=== PATIENT | female | born 1985 | race Caucasian/White ===

== ENCOUNTER 2017-04-16 21:14 | Inpatient (IN) | payer OTHER ==
[2017-04-16] MEDS ORDERED: morphine CARPU-JECT 2 MG/1 ML DISP.SYRIN IVPUSH ONE (22:09)
--- NOTE | 2017-04-16 22:17 | PDOC ---
History of Present Illness - General Chief Complaint: Pain Stated Complaint: LOWER LEFT BACK/ ABD PAIN Time Seen by Provider: 04/16/17 21:53 History Source: Patient Exam Limitations: No Limitations - History of Present Illness Initial Comments: 04/16/17 22:11 Patient is a 32-year-old female with no past medical history here with complaints of abdominal pain 2 days. Patient states that she had bilateral back pain which started 3 days ago which then radiated to the front and now she mostly has pain periumbilically. Pain is 7/10, is worse with movement, sharp, stabbing. States she also has some urinary frequency and urgency however has no dysuria. Denies nausea, vomiting, fever, chills, diarrhea. LMP 03/23/17. PMHX: as above PSOCHX: neg etoh, drug, cig all: NKDA GENERAL/CONSTITUTIONAL: [No fever or chills. No weakness. No weight change.] HEAD, EYES, EARS, NOSE AND THROAT: [No change in vision. No ear pain or discharge. No sore throat.] CARDIOVASCULAR: [No chest pain or shortness of breath.] RESPIRATORY: [No cough, wheezing, or hemoptysis.] GASTROINTESTINAL: [No nausea, vomiting, diarrhea or constipation. No rectal bleeding.] GENITOURINARY: [No dysuria, (+) frequency, or change in urination.] MUSCULOSKELETAL: [No joint or muscle swelling or pain. No neck or back pain.] SKIN AND BREASTS: [No rash or easy bruising.] NEUROLOGIC: [No headache, vertigo, loss of consciousness, or loss of sensation.] PSYCHIATRIC: [No depression or anxiety.] ENDOCRINE: [No increased thirst. No abnormal weight change.] HEMATOLOGIC/LYMPHATIC: [No anemia, easy bleeding, or history of blood clots.] ALLERGIC/IMMUNOLOGIC: [No hives or skin allergy. No latex allergy.] GENERAL: [The patient is awake, alert, and fully oriented, in mild distress.] HEAD: [Normal with no signs of trauma.] EYES: [Pupils equal, round and reactive to light, extraocular movements intact, sclera anicteric, conjunctiva clear.] ENT: [Ears normal, nares patent, oropharynx clear without exudates. Moist mucous membranes.] NECK: [Normal range of motion, supple without lymphadenopathy, JVD, or masses.] LUNGS: [Breath sounds equal, clear to auscultation bilaterally. No wheezes, and no crackles.] HEART: [Regular rate and rhythm, normal S1 and S2 without murmur, rub.] ABDOMEN: [Soft, (+) generalized tenderness most tentder McBurney's point, normoactive bowel sounds. No guarding, no rebound. No masses.] EXTREMITIES: [Normal range of motion, no edema. No clubbing or cyanosis. No cords, erythema, or tenderness.] NEUROLOGICAL: [Cranial nerves II through XII grossly intact. Normal speech, normal gait.] PSYCH: [Normal mood, normal affect.] SKIN: [Warm, Dry, normal turgor, no rashes or lesions noted.] Past History - Past Medical History Allergies/Adverse Reactions: Allergies Allergy/AdvReac Type Severity Reaction Status Date / Time No Known Allergies Allergy Verified 04/16/17 21:26 Home Medications: Ambulatory Orders NK [No Known Home Medication] 04/17/17 COPD: No Other medical history: Pt denies - Suicide/Smoking/Psychosocial Hx Smoking History: Never smoked Have you smoked in the past 12 months: No Information on smoking cessation initiated: No Hx Alcohol Use: No Drug/Substance Use Hx: No Substance Use Type: None Abd/GI Specific PMHX - Complaint Specific PMHX Colitis: No Diverticulitis: No Gall Bladder Disease: No GERD: No Hepatitis: No Irritable Bowel Synd (IBS): No Pancreatitis: No GI Ulcer Disease: No *Physical Exam - Vital Signs Last Vital Signs Temp Pulse Resp BP Pulse Ox 97.8 F 65 18 120/67 98 04/16/17 21:26 04/16/17 21:26 04/16/17 21:26 04/16/17 21:26 04/16/17 21:26 ED Treatment Course - LABORATORY CBC & Chemistry Diagram: 04/16/17 22:31 04/16/17 22:30 - RADIOLOGY Radiology Studies Ordered: Category Date Time Status ABDOMEN & PELVIS CT WITH CONTR [CT] Stat CT Scan 04/16/17 22:09 Ordered Medical Decision Making - Medical Decision Making 04/16/17 22:17 Patient is a 32-year-old female with no past medical history here with complaints of abdominal pain 2 days. ddx incl appendicits, pylenophritis, uti, ovary pathology less likely labs, pain meds. ct abd reassess 0030 Patient still c/o pain in the now mostly in the back 04/17/17 00:44 Patient Full Name: ABBE DUONG Patient Accession No: [id number] Patient : 1985 Reason for Exam: ABD PAIN Referring Physician: Patient Name: RHODA MCADAMS THIS IS A PRELIMINARY REPORT FROM [facility] DATE OF SERVICE: 2017-04-16 23:33:48 IMAGES: 19 EXAM: CT ABDOMEN AND PELVIS WITH CONTRAST 1.2 cm diameter appendix with prominent enhancing wall, question normal variation versus acute appendicitis. No periappendiceal fat inflammation. Correlate clinically and consider followup CT with oral contrast. No bowel obstruction, colitis, free fluid or free air. Unremarkable pancreas, kidneys and gallbladder. THIS DOCUMENT HAS BEEN ELECTRONICALLY SIGNED Alanna Saucedo M.D. 04/17/2017 00:38 EST MTeeteeD. Please call [facility] [phone] ([phone]) with questions. INTERPRETING RADIOLOGIST: Alanna Saucedo MD Electronically Signed: Apr 17, 2017 12:38AM EDT 04/17/17 01:37 continues to c/o pain given Morphine 2mg IV re-exam Abd: tenderness in the rlq at [facility]'s 04/17/17 02:24 d/c dr. Martínez will admit *DC/Admit/Observation/Transfer Diagnosis at time of Disposition: Appendicitis Abdominal pain Qualifiers: Abdominal location: left lower quadrant Qualified Code(s): R10.32 - Left lower quadrant pain - Discharge Dispostion Condition at time of disposition: Stable Admit: Yes - Referrals - Patient Instructions - Post Discharge Activity
[2017-04-16] MEDS ORDERED: morphine SULFATE 4 MG/ML VIAL ONE (22:33)
[2017-04-16 22:35] LABS: BASO % 0.3 % (0-2.0); EOS % 0.8 % (0-4.5); HEMATOCRIT 34.3 % (32.4-45.2); HEMOGLOBIN 11.8 GM/dL (10.7-15.3); MCH 29.8 pg (25.7-33.7); MCHC 34.3 g/dl (32.0-36.0); MEAN CELL VOLUME 86.9 fl (80-96); MEAN PLT VOLUME 8.2 fl (7.5-11.1); MONO % 5.7 % (3.8-10.2); NEUT % 68.2 % (42.8-82.8); PLATELET COUNT 252 K/MM3 (134-434); RBC 3.95 M/mm3 (3.60-5.2); RDW 13.3 % (11.6-15.6)
[2017-04-16 22:37] LABS: URINE APPEARANCE SLCLOUDY; URINE BILIRUBIN NEGATIVE (NEGATIVE); URINE BLOOD NEGATIVE (NEGATIVE); URINE COLOR YELLOW; URINE GLUCOSE (UA) NEGATIVE (NEGATIVE); URINE KETONE NEGATIVE (NEGATIVE); URINE NITRITE NEGATIVE (NEGATIVE)
[2017-04-16 22:38] LABS: URINE LEUK ESTERASE 1+ (NEGATIVE); URINE PROTEIN 1+ (NEGATIVE)
[2017-04-16 22:39] LABS: EPI CELLS FEW /HPF (FEW); URINE BACTERIA RARE /hpf (NONE SEEN); URINE MUCUS RARE
[2017-04-16 22:55] LABS: HCG,QUALITATIVE URINE NEGATIVE
[2017-04-16 22:58] LABS: ALBUMIN 3.8 g/dl (3.4-5.0); ANION GAP 6 (8-16); BLOOD UREA NITROGEN 16 mg/dL (7-18); CALCIUM 7.7 mg/dL (8.5-10.1); CHLORIDE 107 mmol/L (98-107); CO2 27 mmol/L (21-32); CREATININE 0.5 mg/dL (0.55-1.02); GLUCOSE,RANDOM 105 mg/dL (74-106); LIPASE 103 U/L (73-393); POTASSIUM 3.9 mmol/L (3.5-5.1); SGOT/AST 22 U/L (15-37); SGPT/ALT 31 U/L (12-78); SODIUM 140 mmol/L (136-145)
[2017-04-16 23:00] LABS: ALK PHOS 87 U/L (45-117); BILIRUBIN,TOTAL 0.3 mg/dL (0.2-1.0)
[2017-04-17] MEDS ORDERED: morphine CARPU-JECT 2 MG/1 ML DISP.SYRIN IVPUSH ONE (01:36)
[2017-04-17] MEDS ORDERED: MORPHINE SULFATE 10 MG/1 ML *VIAL ONE (01:44)
[2017-04-17] MEDS ORDERED: SODIUM CHLORIDE 0.9% 500 ML INFUS.BAG IV ONE (01:51)
--- NOTE | 2017-04-17 02:28 | PN ---
Teaching Attending Note Name of Resident: Kristopher Gaona ATTENDING PHYSICIAN STATEMENT I saw and evaluated the patient. I reviewed the resident's note and discussed the case with the resident. I agree with the resident's findings and plan as documented. SUBJECTIVE: 30 F with NO pmhx. who presents with urinary frequency, urgency and dysuria. States she has pain also in her lower abdomen. Pain is apparent when she moves. Denies any chest pain, pressure or shortness of breath. No n,v,d. OBJECTIVE: Physica: VS: Vital Signs Period Temp Pulse Resp BP Sys/Chaidez Pulse Ox Last 24 Hr 97.8 F 65 18 120/67 98 GEN:NAD, Resting in bed, AA0X3 HEENT: NCAT, PERRL, Throat without erythema or exudates CARD: RRR S1, S2 RESP: CTAB ABD: BSX4, TTP RLQ EXT: - C/C/E CBCD WBC 9.0 K/mm3 (4.0-10.0) 04/16/17 22:31 RBC 3.95 M/mm3 (3.60-5.2) 04/16/17 22:31 Hgb 11.8 GM/dL (10.7-15.3) 04/16/17 22:31 Hct 34.3 % (32.4-45.2) 04/16/17 22:31 MCV 86.9 fl (80-96) 04/16/17 22:31 MCHC 34.3 g/dl (32.0-36.0) 04/16/17 22:31 RDW 13.3 % (11.6-15.6) 04/16/17 22:31 Plt Count 252 K/MM3 (134-434) 04/16/17 22:31 MPV 8.2 fl (7.5-11.1) 04/16/17 22:31 CMP Sodium 140 mmol/L (136-145) 04/16/17 22:30 Potassium 3.9 mmol/L (3.5-5.1) 04/16/17 22:30 Chloride 107 mmol/L (98-107) 04/16/17 22:30 Carbon Dioxide 27 mmol/L (21-32) 04/16/17 22:30 Anion Gap 6 (8-16) L 04/16/17 22:30 BUN 16 mg/dL (7-18) 04/16/17 22:30 Creatinine 0.5 mg/dL (0.55-1.02) L 04/16/17 22:30 Creat Clearance w eGFR > 60 (>60) 04/16/17 22:30 Random Glucose 105 mg/dL (74-106) 04/16/17 22:30 Calcium 7.7 mg/dL (8.5-10.1) L 04/16/17 22:30 Total Bilirubin 0.3 mg/dL (0.2-1.0) D 04/16/17 22:30 AST 22 U/L (15-37) 04/16/17 22:30 ALT 31 U/L (12-78) 04/16/17 22:30 Alkaline Phosphatase 87 U/L (45-117) 04/16/17 22:30 Total Protein 7.0 g/dl (6.4-8.2) 04/16/17 22:30 Albumin 3.8 g/dl (3.4-5.0) 04/16/17 22:30 CT ABD/PELVIS WO CON: EXAM: CT ABDOMEN AND PELVIS WITH CONTRAST 1.2 cm diameter appendix with prominent enhancing wall, question normal variation versus acute appendicitis. No periappendiceal fat inflammation. Correlate clinically and consider followup CT with oral contrast. No bowel obstruction, colitis, free fluid or free air. Unremarkable pancreas, kidneys and gallbladder. ASSESSMENT AND PLAN: 32 F with no pmhx. who presents with abdominal pain, being admitted for acute appendicitis 1.) ? Acute Appendicitis - NPO - IVF, Type & Screen, Coags - zosyn - Cx - Sx. Consult 2.) Dvt Ppx - SCDs Place in Med-Sx
[2017-04-17] MEDS ORDERED: CEFAZOLIN 1 GM/D5W 1 GM/50 ML BAG ONE (02:58)
[2017-04-17] MEDS ORDERED: morphine SULFATE 4 MG/ML VIAL IVPUSH PRN (03:06)
[2017-04-17] MEDS ORDERED: SODIUM CHLORIDE 1,000 ML IV SCH (03:15)
[2017-04-17] MEDS: morphine SULFATE 4 MG/ML VIAL IVPUSH PRN ×2 (04:36→11:26)
--- NOTE | 2017-04-17 04:38 | HP ---
CHIEF COMPLAINT: abdominal pain PCP: none HISTORY OF PRESENT ILLNESS: The patient is a 32 yo m w/ no PMH who comes into the ED c/o a 3 day history of back and abdominal pain. The patient states that she began to have low back pain 3 days ago which progressed to periumbilical pain 2 days ago and has now progressed to RLQ pain. The pain is sharp, 5/10 in intensity, but can worsten to 10/10 on movement. Laying still improved the pain. Patient denies fever, chills, recent travel, nausea, vomiting, diarrhea, constipation or dysuria. ER course was notable for: (1) Labs WNL (2) CT abdomen showing 1.2 cm diameter appendix w/ wall thickening concerning for appendicitis. (3) Recent Travel: none PAST MEDICAL HISTORY: none PAST SURGICAL HISTORY: none Social History: Smoking: denies Alcohol: denies Drugs: denies Family History: non-contributory Allergies No Known Allergies Allergy (Verified 04/16/17 21:26) HOME MEDICATIONS: Home Medications Medication Instructions Recorded NK [No Known Home Medication] 04/17/17 REVIEW OF SYSTEMS CONSTITUTIONAL: Absent: fever, chills, diaphoresis, generalized weakness, malaise, loss of appetite, weight change HEENT: Absent: rhinorrhea, nasal congestion, throat pain, throat swelling, difficulty swallowing, mouth swelling, ear pain, eye pain, visual changes CARDIOVASCULAR: Absent: chest pain, syncope, palpitations, irregular heart rate, lightheadedness , peripheral edema RESPIRATORY: Absent: cough, shortness of breath, dyspnea with exertion, orthopnea, wheezing, stridor, hemoptysis GASTROINTESTINAL: Absent: abdominal distension, nausea, vomiting, diarrhea, constipation, melena, hematochezia GENITOURINARY: Absent: dysuria, frequency, urgency, hesitancy, hematuria, flank pain, genital pain MUSCULOSKELETAL: Absent: myalgia, arthralgia, joint swelling, back pain, neck pain SKIN: Absent: rash, itching, pallor HEMATOLOGIC/IMMUNOLOGIC: Absent: easy bleeding, easy bruising, lymphadenopathy, frequent infections ENDOCRINE: Absent: unexplained weight gain, unexplained weight loss, heat intolerance, cold intolerance NEUROLOGIC: Absent: headache, focal weakness or paresthesias, dizziness, unsteady gait, seizure, mental status changes, bladder or bowel incontinence PSYCHIATRIC: Absent: anxiety, depression, suicidal or homicidal ideation, hallucinations. PHYSICAL EXAMINATION Vital Signs - 24 hr 04/16/17 04/17/17 21:26 03:26 Temperature 97.8 F Pulse Rate 65 Pulse Rate [ 63 Right Apical] Respiratory 18 18 Rate Blood Pressure 120/67 Blood Pressure 116/72 [Right Arm] O2 Sat by Pulse 98 98 Oximetry (%) GENERAL: Awake, alert, and fully oriented, in no acute distress. HEAD: Normal with no signs of trauma. EYES: Pupils equal, round and reactive to light, extraocular movements intact, sclera anicteric, conjunctiva clear. No lid lag. LUNGS: Breath sounds equal, clear to auscultation bilaterally. No wheezes, and no crackles. No accessory muscle use. HEART: Regular rate and rhythm, normal S1 and S2 without murmur, rub or gallop. ABDOMEN: Soft, not distended, normoactive bowel sounds. No hepatomegaly or splenomegaly. The abdomen was tender to palpation in the RLQ and palpation of the LLQ produced pain in the RLQ. Obturator sign positive. Rebound positive. No guarding. LOWER EXTREMITIES: 2+ pulses, warm, well-perfused. No calf tenderness. No peripheral edema. NEUROLOGICAL: Cranial nerves II-X intact. Normal speech. PSYCHIATRIC: Cooperative. Good eye contact. Appropriate mood and affect. SKIN: Warm, dry, normal turgor, no rashes or lesions noted, normal capillary refill. Laboratory Results - last 24 hr 04/16/17 04/16/17 04/16/17 22:30 22:31 22:31 WBC 9.0 RBC 3.95 Hgb 11.8 Hct 34.3 MCV 86.9 MCH 29.8 MCHC 34.3 RDW 13.3 Plt Count 252 MPV 8.2 Neutrophils % 68.2 Lymphocytes % 25.0 Monocytes % 5.7 Eosinophils % 0.8 Basophils % 0.3 Sodium 140 Potassium 3.9 Chloride 107 Carbon Dioxide 27 Anion Gap 6 L BUN 16 Creatinine 0.5 L Creat Clearance w eGFR > 60 Random Glucose 105 Calcium 7.7 L Total Bilirubin 0.3 D AST 22 ALT 31 Alkaline Phosphatase 87 Total Protein 7.0 Albumin 3.8 Lipase 103 Urine Color Yellow Urine Appearance Slcloudy Urine pH 7.0 Ur Specific [place] 1.032 Urine Protein 1+ H Urine Glucose (UA) Negative Urine Ketones Negative Urine Blood Negative Urine Nitrite Negative Urine Bilirubin Negative Urine Urobilinogen 2.0 H Ur Leukocyte Esterase 1+ H Urine WBC (Auto) 2 Urine RBC (Auto) 20 Ur Epithelial Cells Few Urine Bacteria Rare Urine Mucus Rare Urine HCG, Qual Negative ASSESSMENT/PLAN: The patient is a 32 yo f w/ no PMH who is being admitted for acute appendicitis #Acute appendicitis -surgery consulted -NPO -Pain control -s/p ancef and flagyl -CBC, CMP, Coags, type and screen, blood culture in AM -EKG shows Sinus rhythm @ 59 #FEN -NS@100 -lytes WNL -NPO #Prophy -early ambulation #Dispo -admit to med surg Visit type - Emergency Visit Emergency Visit: Yes ED Registration Date: 04/17/17 Care time: The patient presented to the Emergency Department on the above date and was hospitalized for further evaluation of their emergent condition. - New Patient This patient is new to me today: Yes Date on this admission: 04/17/17 - Critical Care Critical Care patient: No Hospitalist Screening - Colonoscopy Questionnaire Colonoscopy Questionnaire: Colonoscopy Questionnaire - Patient: 50 - 75 years old and never had a screening colonoscopy: Unknown History of colon or rectal polyps, or CA: Unknown History of IBD, Crohn's disease or UC: Unknown History of abdominal radiation therapy as a child: Unknown - Relative: 1 with colon or rectal CA, or polyps at age 60 or younger: Unknown Colon or rectal CA diagnosed at age 45 or younger: Unknown Multiple relatives with colon or rectal CA: Unknown - Outcome: Screening Result: Negative Screen
[2017-04-17 05:21] VITALS: BMI 26.8
[2017-04-17] MEDS ORDERED: PIPERACILLIN/TAZOB 3.375 GM 3.375 GM in DEXTROSE 5%-WATER - 50 ML IVPB ONE ×2 (06:00→13:00)
--- NOTE | 2017-04-17 07:36 | PN ---
Physical Exam: SUBJECTIVE: Patient seen and examined by me this AM - Afebrile, stable. No major events overnight. Pain control adequate. OR today for lap appy. - BM yesterday. No BM overnight. Denies fever, chills, N/V, diarrhea. Poor appetite since yesterday PM, NPO after midnight. Endorses occasional tenesmus. Denies melena, hematochezia OBJECTIVE: Vital Signs Intake & Output 04/14/17 04/15/17 04/16/17 04/17/17 22:59 22:59 23:59 23:59 Intake Total 500 Balance 500 Weight 68.634 kg Period Temp Pulse Resp BP Sys/Chaidez Pulse Ox Last 24 Hr 97.8 F-97.9 F 57-65 18-18 101-120/58-72 98-98 GENERAL: Young woman in NAD, A&Ox3 HEAD: Normal with no signs of trauma. EYES: PERRL, sclera anicteric, conjunctiva clear. No ptosis. ENT: Ears normal, nares patent, oropharynx clear without exudates, moist mucous membranes. NECK: Trachea midline, full range of motion, supple. LUNGS: Breath sounds equal, clear to auscultation bilaterally, no wheezes, no crackles, noaccessory muscle use. HEART: Regular rate and rhythm, S1, S2 without murmur, rub or gallop. ABDOMEN: TTP in RLQ. + mcburney's sign. Negative rovsing, obturator. No rebound , guarding. NT on L side. non-distended. normoactive bowel sounds. Negative choudhary's. rebound, no hepatosplenomegaly, no masses. EXTREMITIES: 2+ DP/PT pulses, warm, well-perfused, no edema. NEUROLOGICAL: Cranial nerves II through XII grossly intact. Normal speech, gait not observed. PSYCH: Normal mood, normal affect. Laboratory Results - last 24 hr CBC, BMP 04/17/17 07:35 04/17/17 07:35 04/16/17 22:31 04/16/17 22:30 04/16/17 04/16/17 04/16/17 22:30 22:31 22:31 WBC 9.0 RBC 3.95 Hgb 11.8 Hct 34.3 MCV 86.9 MCH 29.8 MCHC 34.3 RDW 13.3 Plt Count 252 MPV 8.2 Neutrophils % 68.2 Lymphocytes % 25.0 Monocytes % 5.7 Eosinophils % 0.8 Basophils % 0.3 Sodium 140 Potassium 3.9 Chloride 107 Carbon Dioxide 27 Anion Gap 6 L BUN 16 Creatinine 0.5 L Creat Clearance w eGFR > 60 Random Glucose 105 Calcium 7.7 L Total Bilirubin 0.3 D AST 22 ALT 31 Alkaline Phosphatase 87 Total Protein 7.0 Albumin 3.8 Lipase 103 Urine Color Yellow Urine Appearance Slcloudy Urine pH 7.0 Ur Specific [place] 1.032 Urine Protein 1+ H Urine Glucose (UA) Negative Urine Ketones Negative Urine Blood Negative Urine Nitrite Negative Urine Bilirubin Negative Urine Urobilinogen 2.0 H Ur Leukocyte Esterase 1+ H Urine WBC (Auto) 2 Urine RBC (Auto) 20 Ur Epithelial Cells Few Urine Bacteria Rare Urine Mucus Rare Urine HCG, Qual Negative Active Medications Generic Name Dose Route Start Last Admin Trade Name Freq PRN Reason Stop Dose Admin Sodium Chloride 1,000 mls @ 100 mls/hr 04/17/17 03:15 04/17/17 04:43 Normal Saline - IV 100 mls/hr ASDIR CHELSEY Administration Morphine Sulfate 2 mg 04/17/17 03:06 04/17/17 04:36 Morphine Sulfate IVPUSH 2 mg Q4H PRN Administration PAIN LEVEL 6-10 Morphine Sulfate 1 mg 04/17/17 03:06 Morphine Sulfate IVPUSH Q4H PRN PAIN LEVEL 1-[address] Ab 04/16 - thickened appendix, other no acute pathology. ASSESSMENT/PLAN: 32 yo f w/ no significant PMH who presented with 3 days of back pain, progressing to RLQ pain, now with CT confirmed appendicitis, now POD0 from [facility] w/ Dr Hartman. Plan for d/c tomorrow home. #Acute appendicitis - CT confirmed - [facility] today w/ Dr. Hartman - NPO - pain control w/ morphine IV/oxycodone/fentanyl patch - s/p ancef/flagyl. Received empiric zosyn. No abx post-op - EKG normal - Post-op management per surgical team - Phenergan/zofran for N/V - ID consulted, recs appreciated #PPX - Lovenox - protonix FEN NS 100cc/hr lytes wnl NPO. Diet per surgical recs post-op dispo: Will d/c home tomorrow, assuming uncomplicated post-op course Plan discussed with attending, Dr. Estiven Gregorio, PGY1 Visit type - Emergency Visit Emergency Visit: Yes ED Registration Date: 04/17/17 Care time: The patient presented to the Emergency Department on the above date and was hospitalized for further evaluation of their emergent condition. - New Patient This patient is new to me today: Yes Date on this admission: 04/18/17 - Critical Care Critical Care patient: No
[2017-04-17 08:22] LABS: BASO % 0.1 % (0-2.0); EOS % 1.1 % (0-4.5); HEMATOCRIT 33.8 % (32.4-45.2); HEMOGLOBIN 11.5 GM/dL (10.7-15.3); LYMPH % 35.9 % (8-40); MCH 30.2 pg (25.7-33.7); MCHC 34.1 g/dl (32.0-36.0); MEAN CELL VOLUME 88.5 fl (80-96); MEAN PLT VOLUME 8.6 fl (7.5-11.1); NEUT % 56.9 % (42.8-82.8); PLATELET COUNT 239 K/MM3 (134-434); RBC 3.81 M/mm3 (3.60-5.2); RDW 13.4 % (11.6-15.6); WHITE BLOOD COUNT 6.1 K/mm3 (4.0-10.0)
[2017-04-17 08:23] LABS: INR 1.02 (0.82-1.09); PROTHROMBIN TIME (PATIENT) 11.5 SEC (9.98-11.88)
[2017-04-17 08:26] LABS: ACTIVATED PTT 26.7 SECONDS (26.9-34.4); ALBUMIN 3.1 g/dl (3.4-5.0); ANION GAP 8 (8-16); BLOOD UREA NITROGEN 10 mg/dL (7-18); CALCIUM 7.7 mg/dL (8.5-10.1); CHLORIDE 107 mmol/L (98-107); CO2 26 mmol/L (21-32); GLUCOSE,RANDOM 94 mg/dL (74-106); MAGNESIUM 2.5 mg/dL (1.8-2.4); POTASSIUM 4.3 mmol/L (3.5-5.1); SODIUM 141 mmol/L (136-145)
[2017-04-17 08:29] LABS: ALK PHOS 62 U/L (45-117); BILIRUBIN,TOTAL 0.7 mg/dL (0.2-1.0); CREATININE 0.5 mg/dL (0.55-1.02); PHOSPHOROUS 2.9 mg/dL (2.5-4.9); SGOT/AST 18 U/L (15-37); SGPT/ALT 28 U/L (12-78); TOT PROT 6.3 g/dl (6.4-8.2)
--- NOTE | 2017-04-17 12:16 | PN ---
Progress Note (short form) - Note Progress Note: surgery pt seen and examined. full consult dictated. 32f with rlq pain for [address] showing abnormal enlarged appendix. wbc wnl. on exam pt has significant rlq tenderness with rebound and guarding. Plan- clinically appendicitis. will procede with surgery. could be other etiology of pain with abnormal appendix but still should have removed. cont zosyn.
[2017-04-17] MEDS ORDERED: PIPERACIL/TAZOB 3.375 GM 3.375 GM/50 ML PREMIX IVPB ONE (12:22)
--- NOTE | 2017-04-17 12:32 | CON.ID ---
Consult Consult Specialty:: infectious diseases Reason for Consultation:: appendicitis - History of Present Illness Chief Complaint: abd pain rt lower quadrant History of Present Illness: 32 yo m w/ no PMH admitted with a 3 day history of back and abdominal pain. The patient states that she began to have low back pain 3 days ago which progressed to periumbilical pain 2 days ago and has now progressed to RLQ pain. patient was seen by surgery and work up was done found to ahve appendicitis and patient was taken to the operating room patient now in post op room post appendectomy--relatively clean appendix - History Source History Provided By: Patient - Past Medical History ...LMP: 03/23/17 - Alcohol/Substance Use Hx Alcohol Use: No - Smoking History Smoking history: Never smoked Have you smoked in the past 12 months: No Home Medications - Allergies Allergies/Adverse Reactions: Allergies Allergy/AdvReac Type Severity Reaction Status Date / Time No Known Allergies Allergy Verified 04/16/17 21:26 - Home Medications Home Medications: Ambulatory Orders NK [No Known Home Medication] 04/17/17 Review of Systems - Review of Systems Constitutional: reports: No Symptoms Eyes: reports: No Symptoms HENT: reports: No Symptoms Neck: reports: No Symptoms Cardiovascular: reports: No Symptoms Respiratory: reports: No Symptoms Gastrointestinal: reports: Abdominal Pain Genitourinary: reports: No Symptoms Musculoskeletal: reports: No Symptoms Integumentary: reports: No Symptoms Neurological: reports: No Symptoms Endocrine: reports: No Symptoms Hematology/Lymphatic: reports: No Symptoms Psychiatric: reports: No Symptoms Physical Exam Vital Signs: Vital Signs Temperature 98.2 F 04/17/17 08:30 Pulse Rate 61 04/17/17 08:30 Respiratory Rate 18 04/17/17 08:30 Blood Pressure 99/34 04/17/17 08:30 O2 Sat by Pulse Oximetry (%) 98 04/17/17 04:26 Constitutional: Yes: Well Nourished, Calm, Mild Distress Eyes: Yes: Conjunctiva Clear Neck: Yes: Supple Respiratory: Yes: Regular, CTA Bilaterally Gastrointestinal: Yes: Soft, Hypoactive Bowel Sounds, Tenderness Extremities: Yes: WNL Neurological: Yes: Alert, Oriented Psychiatric: Yes: Alert, Oriented Labs: CBC, BMP 04/17/17 07:35 04/17/17 07:35 Imaging - Results Cat Scan: Report Reviewed, Image Reviewed Assessment/Plan appendicitis s/p appendectomy plan continue zosyn once patient starts orally stop abx
[2017-04-17] MEDS ORDERED: DEXAMETHASONE SOD PHOSPHATE 4 MG/1 ML VIAL ONE (12:53)
[2017-04-17] MEDS ORDERED: KETOROLAC TROMETHAMINE 30 MG/1 ML VIAL ONE (12:53)
[2017-04-17] MEDS ORDERED: MIDAZOLAM HCL 2 MG/2 ML SINGLE DOSE VIAL ONE (12:54)
[2017-04-17] MEDS ORDERED: ROCURONIUM BROMIDE 50 MG/5 ML VIAL ONE (12:54)
[2017-04-17] MEDS ORDERED: PROPOFOL 20 ML ONE (12:54)
--- NOTE | 2017-04-17 12:59 | PN ---
Teaching Attending Note Name of Resident: Matteo Gregorio ATTENDING PHYSICIAN STATEMENT I saw and evaluated the patient. I reviewed the resident's note and discussed the case with the resident. I agree with the resident's findings and plan as documented. SUBJECTIVE:c/o RLQ pain worse on movement. relieved with pain medications. denies CP, SOB< fever, chills, N/V/C?D OBJECTIVE: Last Vital Signs Temp Pulse Resp BP Pulse Ox 98.2 F 61 18 99/34 98 04/17/17 08:30 04/17/17 08:30 04/17/17 08:30 04/17/17 08:30 04/17/17 04:26 General NAD CV S1 S2 RRR no murmur/rub/gallop Lungs CTA B/L no wheezing/rlaes/rhonchi Abdomen +RLQ pain. +mcburney point. negative rovsing sign ASSESSMENT AND PLAN: 32yo F wtih no PMH presenting with back pain radiating to the RLQ 1. Acute appendicitis- imrpoved with pain medicaitons. NPO for appendectomy today. on empiric Zosyn. can stop abx post-operatively. ID and surgery on board. cont pain control 2. DVT ppx- EAM 3. spoke with present at bedside. all questions answered. verbalized understanding and agreement with plan
[2017-04-17] MEDS ORDERED: NEOSTIGMINE METHYLSULFATE 0.5 MG/ML - 10 ML MDV ONE (13:41)
[2017-04-17] MEDS ORDERED: GLYCOPYRROLATE 0.2 MG/1 ML VIAL ONE ×2 (13:42)
--- NOTE | 2017-04-17 13:57 | OP ---
Operative Note - Note: Operative Date: 04/17/17 Pre-Operative Diagnosis: acute appendicitis Operation: laparoscopic appendectomy, lavage Findings: thickened, inflamed appendix Post-Operative Diagnosis: Same as Pre-op Surgeon: Ramu Hartman Anesthesiologist/ASPHALT HEATER TENDER: Ramu Rose Anesthesia: General Specimens Removed: appendix Estimated Blood Loss (mls): 30
[2017-04-17] MEDS ORDERED: PROMETHAZINE HCL 25 MG/1 ML VIAL IVPUSH PRN (14:03)
[2017-04-17] MEDS ORDERED: ONDANSETRON 4 MG/2 ML VIAL IVPUSH PRN (14:03)
--- NOTE | 2017-04-17 14:16 | CONS ---
DATE OF CONSULTATION: 04/17/2017 REASON FOR CONSULTATION: Acute appendicitis. This is an emergency room consultation at the request of the emergency room physician. The patient was subsequently admitted to the hospital, is being seen and examined as an inpatient. BRIEF HISTORY: This is a 32-year-old female without significant past medical or surgical history, who presented to [facility] Emergency Room with 3 days' complaint of back pain, periumbilical and right lower quadrant pain. She had a CAT scan of her abdomen and pelvis, which was significant for an enlarged abnormal appendix that did not appear to be inflamed. Her white blood cell count was normal. She was admitted for presumed acute appendicitis, started on Zosyn antibiotic. Overnight, her pain has not resolved. She denies nausea, denies vomiting, denies recent weight loss, denies blood in her stool. Her past medical history is negative. Past surgical history is nil. Social history is negative for alcohol, negative for tobacco. She takes no medications and has no known drug allergies. Her family history is noncontributory. REVIEW OF SYSTEMS: General: Denies fatigue or malaise. Cardiac: Denies chest pain or palpitations. Respiratory: No shortness of breath or wheeze. Gastrointestinal: As stated in HPI. Genitourinary: Denies dysuria. Musculoskeletal: Denies joint pain, joint swelling. Psychiatric: Denies anxiety, depression, or hearing voices. PHYSICAL EXAMINATION: General: This is a well-developed, well-nourished 32-year-old female in no distress. Vital Signs: She is afebrile, has been since admission. HEENT: Her head is normocephalic. Sclerae are anicteric. Neck: Supple. Chest: Clear. Abdomen: Soft. She has significant right lower quadrant tenderness with rebound and guarding. She has no surgical scars. She has no obvious hernias. Extremities: Her extremities have no edema. On review of her laboratory, her white blood cell count is normal at 6.1. There is no shift. Her coagulation profile is unremarkable. Her chemistries are unremarkable. On review of her imaging, she has a CAT scan of her abdomen and pelvis, which her official reading shows a thickened appendix, otherwise a normal CAT scan of the abdomen and pelvis. The appendix is described as thickened without inflammation. ASSESSMENT: This is a 32-year-old female with severe right lower quadrant pain, right lower quadrant tenderness, with localized peritoneal findings, and a CAT scan showing abnormal appendix. Clinically this is acute appendicitis. The alternative is that she has an abnormal appendix and other etiology of her pain. In either event, would recommend removal of her appendix. Patient has been admitted, started on Zosyn antibiotic, which will cover E coli and other enteric as well as gram-negative and anaerobic bacteria. Risks and benefits of surgery have been explained to the patient in detail. These are including but not limited to the possibility of conversion to open, the possibility of injury to viscera or bladder, the possibility of blood loss requiring blood transfusion, the possibility of suture obstruction, the possibility of future hernia, possibility of abscess, possibility of staple dehiscence, plus a multitude of medical risks including but not limited to cardiac, neurologic, pulmonary, and vascular complications, even . The patient understands these risks and is agreeable to surgery. DO CHAPO QUEZADA/[id number]
--- NOTE | 2017-04-17 16:02 | EKG ---
Test Reason : Blood Pressure : / mmHG Vent. Rate : 059 BPM Atrial Rate : 059 BPM P-R Int : 154 ms QRS Dur : 080 ms QT Int : 444 ms P-R-T Axes : 052 017 037 degrees QTc Int : 439 ms SINUS BRADYCARDIA WITH SINUS ARRHYTHMIA LOW VOLTAGE QRS BORDERLINE ECG NO PREVIOUS ECGS AVAILABLE Confirmed by AMY MCLAIN MD ([id number]) on 04/17/2017 4:02:01 PM Referred By: Confirmed By:AMY MCLAIN MD
[2017-04-17] MEDS ORDERED: PT OWN MED DRAWER 7, Y5N ONE (17:52)
[2017-04-17] MEDS: PIPERACILLIN/TAZOB 3.375 GM 3.375 GM in DEXTROSE 5%-WATER - 50 ML IVPB SCH (17:57)
[2017-04-18] MEDS: oxyCODONE HCL 5 MG TABLET PO PRN ×2 (00:26→09:18)
[2017-04-18] MEDS ORDERED: PT OWN MED DRAWER 7, Y5N ONE ×2 (01:38→09:30)
[2017-04-18] MEDS: PIPERACILLIN/TAZOB 3.375 GM 3.375 GM in DEXTROSE 5%-WATER - 50 ML IVPB SCH ×2 (01:47→09:32)
--- NOTE | 2017-04-18 06:21 | PN ---
Physical Exam: SUBJECTIVE: Patient seen and examined OBJECTIVE: Vital Signs Intake & Output 04/15/17 04/16/17 04/17/17 04/18/17 22:59 23:59 23:59 23:59 Intake Total 1967 Output Total 2230 Balance -263 Weight 68.634 kg Period Temp Pulse Resp BP Sys/Chaidez Pulse Ox Last 24 Hr 97.8 F-98.3 F 56-80 16-18 95-128/34-65 96-97 GENERAL: Young woman in NAD, A&Ox3 HEAD: Normal with no signs of trauma. EYES: PERRL, sclera anicteric, conjunctiva clear. No ptosis. ENT: Ears normal, nares patent, oropharynx clear without exudates, moist mucous membranes. NECK: Trachea midline, full range of motion, supple. LUNGS: Breath sounds equal, clear to auscultation bilaterally, no wheezes, no crackles, noaccessory muscle use. HEART: Regular rate and rhythm, S1, S2 without murmur, rub or gallop. ABDOMEN: TTP in RLQ. + mcburney's sign. Negative rovsing, obturator. No rebound , guarding. NT on L side. non-distended. normoactive bowel sounds. Negative choudhary's. rebound, no hepatosplenomegaly, no masses. EXTREMITIES: 2+ DP/PT pulses, warm, well-perfused, no edema. NEUROLOGICAL: Cranial nerves II through XII grossly intact. Normal speech, gait not observed. PSYCH: Normal mood, normal affect. Laboratory Results - last 24 hr CBC, BMP 04/18/17 06:30 04/18/17 06:30 04/17/17 07:35 04/17/17 07:35 04/17/17 04/17/17 04/17/17 07:35 07:35 07:35 WBC 6.1 D RBC 3.81 Hgb 11.5 Hct 33.8 MCV 88.5 MCH 30.2 MCHC 34.1 RDW 13.4 Plt Count 239 MPV 8.6 Neutrophils % 56.9 Lymphocytes % 35.9 D Monocytes % 6.0 Eosinophils % 1.1 Basophils % 0.1 PT with INR 11.50 INR 1.02 PTT (Actin FS) 26.7 L Sodium 141 Potassium 4.3 Chloride 107 Carbon Dioxide 26 Anion Gap 8 BUN 10 Creatinine 0.5 L Creat Clearance w eGFR > 60 Random Glucose 94 Calcium 7.7 L Phosphorus 2.9 Magnesium 2.5 H Total Bilirubin 0.7 D AST 18 ALT 28 Alkaline Phosphatase 62 Total Protein 6.3 L Albumin 3.1 L Blood Type Antibody Screen 04/17/17 07:35 WBC RBC Hgb Hct MCV MCH MCHC RDW Plt Count MPV Neutrophils % Lymphocytes % Monocytes % Eosinophils % Basophils % PT with INR INR PTT (Actin FS) Sodium Potassium Chloride Carbon Dioxide Anion Gap BUN Creatinine Creat Clearance w eGFR Random Glucose Calcium Phosphorus Magnesium Total Bilirubin AST ALT Alkaline Phosphatase Total Protein Albumin Blood Type O POSITIVE Antibody Screen Negative Active Medications Generic Name Dose Route Start Last Admin Trade Name Freq PRN Reason Stop Dose Admin Enoxaparin Sodium 40 mg 04/18/17 10:00 Lovenox - SQ DAILY CHELSEY Fentanyl 50 mcg 04/17/17 14:03 Sublimaze Injection - IVPUSH [id number] PRN PAIN-PACU ORDER X 4 DOSES ONLY Sodium Chloride 1,000 mls @ 100 mls/hr 04/17/17 03:15 04/17/17 04:43 Normal Saline - IV 100 mls/hr ASDIR CHELSEY Administration Piperacillin Sod/Tazobactam 50 mls @ 100 mls/hr 04/17/17 18:00 04/18/17 01:47 Sod 3.375 gm/ Dextrose IVPB 100 mls/hr Q8H-IV CHELSEY Administration Protocol Morphine Sulfate 2 mg 04/17/17 03:06 04/17/17 11:26 Morphine Sulfate IVPUSH 2 mg Q4H PRN Administration PAIN LEVEL 6-10 Morphine Sulfate 1 mg 04/17/17 03:06 04/17/17 20:23 Morphine Sulfate IVPUSH 1 mg Q4H PRN Administration PAIN LEVEL 1-5 Ondansetron HCl 4 mg 04/17/17 14:03 Zofran Injection IVPUSH 04/18/17 14:02 Q6H PRN NAUSEA AND/OR VOMITING Oxycodone HCl 10 mg 04/17/17 14:03 04/18/17 00:26 Roxicodone - PO 04/18/17 14:02 10 mg Q4H PRN Administration PAIN LEVEL 6-10 Pantoprazole Sodium 40 mg 04/18/17 10:00 Protonix Iv IVPUSH DAILY CHELSEY No micro CT Ab 04/16 - thickened appendix, other no acute pathology. ASSESSMENT/PLAN: 32 yo f w/ no significant PMH who presented with 3 days of back pain, progressing to RLQ pain, now with CT confirmed appendicitis, now POD0 from lap appbelkis w/ Dr Hartman. Plan for d/c tomorrow home. #Acute appendicitis - CT confirmed - Aleena Talamantes today w/ Dr. Hartman - NPO - pain control w/ morphine IV/oxycodone/fentanyl patch - s/p ancef/flagyl. Received empiric zosyn. No abx post-op - EKG normal - Post-op management per surgical team - Phenergan/zofran for N/V - ID consulted, recs appreciated #PPX - Lovenox - protonix FEN NS 100cc/hr lytes wnl NPO. Diet per surgical recs post-op dispo: Will d/c home tomorrow, assuming uncomplicated post-op course Plan discussed with attending, Dr. Etsiven Gregorio, PGY1
[2017-04-18 08:20] LABS: CHLORIDE 105 mmol/L (98-107); SODIUM 139 mmol/L (136-145)
[2017-04-18 08:27] LABS: ALBUMIN 3.3 g/dl (3.4-5.0); ALK PHOS 55 U/L (45-117); ANION GAP 10 (8-16); BILIRUBIN,TOTAL 0.7 mg/dL (0.2-1.0); BLOOD UREA NITROGEN 11 mg/dL (7-18); CALCIUM 7.6 mg/dL (8.5-10.1); CO2 24 mmol/L (21-32); CREATININE 0.4 mg/dL (0.55-1.02); GLUCOSE,RANDOM 87 mg/dL (74-106); PHOSPHOROUS 4.5 mg/dL (2.5-4.9); SGPT/ALT 40 U/L (12-78); TOT PROT 6.2 g/dl (6.4-8.2)
[2017-04-18 08:33] LABS: HEMATOCRIT 32.9 % (32.4-45.2); HEMOGLOBIN 11.2 GM/dL (10.7-15.3); MCHC 34.1 g/dl (32.0-36.0); MEAN CELL VOLUME 88.2 fl (80-96); MEAN PLT VOLUME 9.7 fl (7.5-11.1); PLATELET COUNT 333 K/MM3 (134-434); RBC 3.73 M/mm3 (3.60-5.2); RDW 13.2 % (11.6-15.6); WHITE BLOOD COUNT 10.1 K/mm3 (4.0-10.0)
[2017-04-18 08:43] LABS: MAGNESIUM 2.1 mg/dL (1.8-2.4); POTASSIUM 4.2 mmol/L (3.5-5.1); SGOT/AST 30 U/L (15-37)
--- NOTE | 2017-04-18 09:30 | OP ---
DATE OF OPERATION: 04/17/2017 PREOPERATIVE DIAGNOSIS: Acute appendicitis. POSTOPERATIVE DIAGNOSIS: Acute appendicitis. PROCEDURE: Laparoscopic appendectomy and lavage. SURGEON: Ramu Hartman DO ASSOCIATE PROFESSOR OF MEDIA ARTS: There is no vector control assistant. ANESTHESIOLOGIST: Ramu Rose MD (general) SPECIMEN: Appendix. INTRAOPERATIVE FINDINGS: A very thickened, inflamed, non-perforated appendix. DISPOSITION: Recovery room in stable condition. BRIEF HISTORY: This is a 32-year-old female who presented to [facility] Emergency Room with signs and symptoms of acute appendicitis and CT scan evidence to support that. She presents now for surgery. DESCRIPTION OF PROCEDURE: The patient was placed in supine procedure. After general anesthesia was initiated, the abdomen was prepped and draped in sterile fashion , and a Morales catheter was inserted. Next, a vertical incision was made infraumbilical with scalpel used to go through the skin and subcutaneous tissue. The fascia was then lifted with Emi clamp, incised vertically, and the peritoneum was entered bluntly. Next, a 0 Vicryl stitch was placed across the fascial defect and used to secure the Melton trocar. Pneumoperitoneum was created, and a 5-mm 30-degree laparoscope was inserted. Of note, the patient had a ventral hernia above this incision, which was not addressed at the time of surgery. Next, two 5-mm trocars were placed, one suprapubic with care to avoid injuring the bladder and one in the left lower quadrant lateral to the rectus muscle. Attention was then turned to the right lower quadrant, and the appendix was seen. It was thickened and inflamed and injected consistent with acute appendicitis. A window was made at its base. The LigaSure device was used to divide the mesoappendix with multiple welts. The Endo YENY Ultra Vascular Stapler 45-mm was then used to divide the appendix at its base. The staple line was inspected. It was intact. There was no bleeding, no breaks, and no sign of ischemia. Next, the appendix was placed in a specimen bag and removed through the infraumbilical trocar site and sent to Pathology marked as specimen. A limited lavage was done, and all returns were clear. No bleeding was noted. Next, the fascia at the infraumbilical trocar site was then closed with multiple interrupted 0 Vicryl sutures. The 3 skin incisions were closed with Biosyn, and Dermabond dressing was placed. Overall, the patient tolerated the procedure well. There were no complications. Morales catheter was removed, and the operation terminated. DO CHAPO QUEZADA/[id number] MTDD
[2017-04-18] MEDS ORDERED: ENOXAPARIN NA (PORCINE) 40 MG/0.4 ML DISP.SYRIN SQ SCH (10:00)
[2017-04-18] MEDS ORDERED: PANTOPRAZOLE SODIUM 40 MG VIAL IVPUSH SCH (10:00)
--- NOTE | 2017-04-18 10:43 | PN ---
Progress Note (short form) - Note Progress Note: Anesthesia postop note 32 y/o F s/p GA for laparoscopic appendectomy POD31, vss, aaox3, pain well controlled, ambulating. No anesthesia complications.
--- NOTE | 2017-04-18 13:08 | PN ---
Progress Note, Physician History of Present Illness: doing well pain at the operated site cramps tolerated liquid diet - Current Medication List Current Medications: Active Medications Enoxaparin Sodium (Lovenox -) 40 mg SQ DAILY [facility] Last Admin: 04/18/17 09:20 Dose: 40 mg Fentanyl (Sublimaze Injection -) 50 mcg IVPUSH [id number] PRN PRN Reason: PAIN-PACU ORDER X 4 DOSES ONLY Sodium Chloride (Normal Saline -) 1,000 mls @ 100 mls/hr IV ASDIR [facility] Last Admin: 04/17/17 04:43 Dose: 100 mls/hr Piperacillin Sod/Tazobactam (Sod 3.375 gm/ Dextrose) 50 mls @ 100 mls/hr IVPB Q8H-IV [facility] PRN Reason: Protocol Last Admin: 04/18/17 09:32 Dose: 100 mls/hr Morphine Sulfate (Morphine Sulfate) 2 mg IVPUSH Q4H PRN PRN Reason: PAIN LEVEL 6-10 Last Admin: 04/17/17 11:26 Dose: 2 mg Morphine Sulfate (Morphine Sulfate) 1 mg IVPUSH Q4H PRN PRN Reason: PAIN LEVEL 1-5 Last Admin: 04/17/17 20:23 Dose: 1 mg Ondansetron HCl (Zofran Injection) 4 mg IVPUSH Q6H PRN PRN Reason: NAUSEA AND/OR VOMITING Stop: 04/18/17 14:02 Oxycodone HCl (Roxicodone -) 10 mg PO Q4H PRN PRN Reason: PAIN LEVEL 6-10 Stop: 04/18/17 14:02 Last Admin: 04/18/17 09:18 Dose: 10 mg Pantoprazole Sodium (Protonix Iv) 40 mg IVPUSH DAILY [facility] Last Admin: 04/18/17 09:20 Dose: 40 mg - Objective Vital Signs: Vital Signs Temperature 98 F 04/18/17 08:30 Pulse Rate 71 04/18/17 08:30 Respiratory Rate 18 04/18/17 08:30 Blood Pressure 111/59 04/18/17 08:30 O2 Sat by Pulse Oximetry (%) 97 04/17/17 22:00 Constitutional: Yes: Calm, Mild Distress Cardiovascular: Yes: Regular Rate and Rhythm Respiratory: Yes: Regular, CTA Bilaterally Gastrointestinal: Yes: Soft, Hypoactive Bowel Sounds Musculoskeletal: Yes: WNL Extremities: Yes: Other (cramps) Wound/Incision: Yes: Clean/Dry Neurological: Yes: Alert, Oriented Psychiatric: Yes: Alert, Oriented Labs: CBC, BMP 04/18/17 06:30 04/18/17 06:30 INR, PTT INR 1.02 (0.82-1.09) 04/17/17 07:35 Assessment/Plan 32 yo f w/ no significant PMH who presented with 3 days of back pain, progressing to RLQ pain, post op lap appy doing well except pain ath the operated site and cramps apendicitis abd pain plan will stop abx adv diet as per surgery rest as per primary team
[2017-04-18] MEDS ORDERED: oxyCODONE HCL 5 MG TABLET PO PRN (15:00)
--- NOTE | 2017-04-18 15:27 | PN ---
Progress Note (short form) - Note Progress Note: surgery pt seen and examined. feels well. oob. tolerating diet. voiding. afebrile abd- soft, nt, nd incisions clean Plan- surgically stable for d/c off abx, off narcotics ok to shower, walk, drive, regular diet no lifting. likely will need 2 weeks off from work f/u in 2 weeks [phone]
--- NOTE | 2017-04-18 15:51 | PN ---
Teaching Attending Note Name of Resident: Matteo Gregorio ATTENDING PHYSICIAN STATEMENT I saw and evaluated the patient. I reviewed the resident's note and discussed the case with the resident. I agree with the resident's findings and plan as documented. SUBJECTIVE: Patient complains of abdominal pain. OBJECTIVE: Vital Signs Period Temp Pulse Resp BP Sys/Chaidez Pulse Ox Last 24 Hr 97.8 F-98.3 F 62-80 18-18 100-128/44-65 97-97 HEART: S1S2, RRR LUNGS: Clear ABDOMEN: Soft, non-distended, (+) diffuse tenderness, normal BS EXTREMITIES: No edema Laboratory Results - last 24 hr 04/18/17 04/18/17 06:30 06:30 WBC 10.1 H D RBC 3.73 Hgb 11.2 Hct 32.9 MCV 88.2 MCH 30.0 MCHC 34.1 RDW 13.2 Plt Count 333 D MPV 9.7 D Sodium 139 Potassium 4.2 Chloride 105 Carbon Dioxide 24 Anion Gap 10 BUN 11 Creatinine 0.4 L Creat Clearance w eGFR > 60 Random Glucose 87 Calcium 7.6 L Phosphorus 4.5 Magnesium 2.1 Total Bilirubin 0.7 AST 30 ALT 40 Alkaline Phosphatase 55 Total Protein 6.2 L Albumin 3.3 L Current Medications Generic Name Dose Route Start Last Admin Trade Name Freq PRN Reason Stop Dose Admin Enoxaparin Sodium 40 mg 04/18/17 10:00 04/18/17 09:20 Lovenox - SQ 40 mg DAILY CHELSEY Administration Fentanyl 50 mcg 04/17/17 14:03 Sublimaze Injection - IVPUSH [id number] PRN PAIN-PACU ORDER X 4 DOSES ONLY Sodium Chloride 1,000 mls @ 100 mls/hr 04/17/17 03:15 04/17/17 04:43 Normal Saline - IV 100 mls/hr ASDIR CHELSEY Administration Morphine Sulfate 1 mg 04/17/17 03:06 04/17/17 20:23 Morphine Sulfate IVPUSH 1 mg Q4H PRN Administration PAIN LEVEL 1-5 Oxycodone HCl 10 mg 04/18/17 15:00 04/18/17 15:05 Roxicodone - PO 10 mg Q4H PRN Administration PAIN LEVEL 6-10 Pantoprazole Sodium 40 mg 04/18/17 10:00 04/18/17 09:20 Protonix Iv IVPUSH 40 mg DAILY CHELSEY Administration ASSESSMENT AND PLAN: This is a 32 year old woman with no past medical history who presented with back pain radiating to her RLQ. 1. Acute appendicitis - s/p laparoscopic appendectomy 04/17 - Ambulate - Expect discharge today
[2017-04-18 16:57] VITALS: BP 106/61; PULSE 60; TEMP 98.1
--- NOTE | 2017-04-18 18:38 | DS ---
Physical Exam: SUBJECTIVE: Patient seen and examined by me this AM - No major overnight events. Pain well controlled with oxycodone. No BM, flatus overnight. Tolerating juice, apple sauce NPO. No fevers, chills, nausea, vomiting. No CP, SOB, cough, dizziness, vision changes, peripheral edema, numbness/tingling in extremities. Mild abdominal pain in R side and back. Pt discharge home today per surgical team with outpt follow-up in two weeks. OBJECTIVE: Vital Signs Intake & Output 04/15/17 04/16/17 04/17/17 04/18/17 22:59 23:59 23:59 23:59 Intake Total 1967 50 Output Total 2230 Balance -263 50 Weight 68.634 kg Period Temp Pulse Resp BP Sys/Chaidez Pulse Ox Last 24 Hr 98 F-98.7 F 60-71 18-20 98-111/44-61 97 PHYSICAL EXAM GENERAL: Young woman in NAD, A&Ox3 HEAD: Normal with no signs of trauma. EYES: PERRL, sclera anicteric, conjunctiva clear. No ptosis. ENT: Ears normal, nares patent, oropharynx clear without exudates, moist mucous membranes. NECK: Trachea midline, full range of motion, supple. LUNGS: Breath sounds equal, clear to auscultation bilaterally, no wheezes, no crackles, noaccessory muscle use. HEART: Regular rate and rhythm, S1, S2 without murmur, rub or gallop. ABDOMEN: TTP in RUQ/RLQ/epigastrium. No rebound, guarding. NT on L side. Slightly distended abdomen. Incisions C/D/I, no erythema/drainage noted. Hypoactive bowel sounds. Negative choudhary's. No hepatosplenomegaly, no masses. EXTREMITIES: 2+ DP/PT pulses, warm, well-perfused, no edema. NEUROLOGICAL: Cranial nerves II through XII grossly intact. Normal speech, gait not observed. PSYCH: Normal mood, normal affect. LABS Laboratory Results - last 24 hr CBC, BMP 04/18/17 06:30 04/18/17 06:30 04/18/17 04/18/17 06:30 06:30 WBC 10.1 H D RBC 3.73 Hgb 11.2 Hct 32.9 MCV 88.2 MCH 30.0 MCHC 34.1 RDW 13.2 Plt Count 333 D MPV 9.7 D Sodium 139 Potassium 4.2 Chloride 105 Carbon Dioxide 24 Anion Gap 10 BUN 11 Creatinine 0.4 L Creat Clearance w eGFR > 60 Random Glucose 87 Calcium 7.6 L Phosphorus 4.5 Magnesium 2.1 Total Bilirubin 0.7 AST 30 ALT 40 Alkaline Phosphatase 55 Total Protein 6.2 L Albumin 3.3 L Microbiology 04/17/17 10:30 Blood - Peripheral Venous Blood Culture - Preliminary NO GROWTH OBTAINED AFTER 24 HOURS, INCUBATION TO CONTINUE FOR 4 DAYS. 04/17/17 10:20 Blood - Peripheral Venous Blood Culture - Preliminary NO GROWTH OBTAINED AFTER 24 HOURS, INCUBATION TO CONTINUE FOR 4 DAYS. 04/16/17 22:31 Urine - Urine Clean Catch Urine Culture - Final Imaging: CT Abdomen/pelvis 04/16 - Thickened appendix, other no acute pathology Consults: General Surgery - Laparascopic Appendectomy by Dr. Hartman Infectious Disease - [facility] COURSE: Pre-hospital course: Patient is a 32 yo m w/ no PMH who comes into the ED c/o a 3 day history of back and abdominal pain. The patient states that she began to have low back pain 3 days ago which progressed to periumbilical pain 2 days ago and has now progressed to RLQ pain. The pain is sharp, 5/10 in intensity, but can worsten to 10/10 on movement. Laying still improved the pain. Patient denies fever, chills, recent travel, nausea, vomiting, diarrhea, constipation or dysuria. Hospital course: In ED, pt with no lab abnormalities, negative UA and no fever. CT abdomen notable for thickened appendix, suspicious for acute appendicitis. Blood an urine cultures sent. General surgery was consulted (Dr. Hartman), recommended immediate laparascopic appendectomy. ID was consulted. Pt was made NPO, started on empiric Zosyn for abx coverage. Pt taken to surgery on 04/17, notable for resection of thickened, inflamed appendix, minimal EBL and no-perioperative complications. Pt post-op course unremarkable, with no evidence of surgical site infection, respiratory issues, hypotension or adverse reactions to anesthesia. Pt complaining of only mild abdominal distension/pain on POD1, tolerating PO feeds with no N/V. Per surgical team, Pt cleared for discharge with outpt f/u in two weeks with Dr. Hartman in clinic. No other active medical issues during admission. Date of Admission:04/17/17 Date of Discharge: 04/18/17 Pt stable and medically cleared for discharge with follow-up with Dr. Hartman for post-op management in two weeks. Minutes to complete discharge: 35 Discharge Summary Reason For Visit: ABDOMINAL PAIN APPENDICITIS Condition: Stable - Instructions Diet, Activity, Other Instructions: During your stay at [facility], you were treated for appendicitis. You received a laparascopic surgical removal of your appendix with Dr. Hartman, which confirmed your diagnosis of acute appendicitis. Medications: Please take tylenol by mouth every four hours for pain control as needed. Please continue to take all other home medications as previously directed. Follow-ups: Please follow-up with your primary care physician in one week for further management of your medications. Please call their office to schedule an appointment. If you require a new primary care provider, contact information for our resident clinic has been provided in your discharge packet. Please call to schedule an appointment within one week of discharge for further management of your medications and medical care. Please follow-up with your surgeon, Dr. Hartman, in two weeks for further post- operative management of your surgical care. His contact number has been provided in this packet. Please call his office to make an appointment. Diet/exercise: You are cleared to shower, walk, drive and have no dietary restrictions after the surgery. Please refrain from any heavy lifting and only lift up to 10 lbs at a time. Please return to the hospital if you experience any of the following symptoms: - Persistent fevers or chills - Worsening abdominal pain - Dark or bloody stools - Redness or pus from your surgical sites - Any new or concerning symptoms Referrals: Prateek Kirkpatrick MD [Staff Physician] - 1 Week Ramu Hartman MD [Staff Physician] - 2 Weeks Disposition: HOME - Home Medications Comprehensive Discharge Medication List: Ambulatory Orders NK [No Known Home Medication] 04/17/17 This patient is new to me today: No Emergency Visit: Yes ED Registration Date: 04/17/17 Care time: The patient presented to the Emergency Department on the above date and was hospitalized for further evaluation of their emergent condition. Critical Care patient: No - Discharge Referral Referred to [facility] Med P.C.: No
== END 2017-04-18 18:46 | disposition home or self-care (01) | DRG 225 ==
LOC: JER 21:14 → J8W 04-17 02:26
PROVIDERS: ADMIT Internal Medicine; ATTEND Internal Medicine
PROC: 0DTJ4ZZ Resection of Appendix, Percutaneous Endoscopic Approach (ICD-10-PCS; principal; 2017-04-17 12:15)
DX: K35.80 Unspecified acute appendicitis (principal); R10.31 Right lower quadrant pain
CPT/HCPCS: 36415; 74177-TC; 80053; 81003; 81015; 83690; 83735; 84100; 84703; 85025; 85027; 85610; 85730; 86850; 86900; 86901; 87040; 87086; 88304-TC; 93005; 93010; 94760; 99283-25; J7030

== ENCOUNTER 2019-09-09 20:09 | Emergency (ER) | payer OTHER ==
[2019-09-09] MEDS ORDERED: SODIUM CHLORIDE 1,000 ML IV STA (20:24)
[2019-09-09] MEDS ORDERED: FAMOTIDINE 20 MG/50 ML IVPB 20 MG/50 ML MG IVPB ONE ×2 (20:24→21:44)
[2019-09-09] MEDS ORDERED: ACETAMINOPHEN 325 MG TABLET (FP) PO ONE (20:24)
--- NOTE | 2019-09-09 20:26 | PDOC ---
Rapid Medical Evaluation Chief Complaint: Diarrhea Time Seen by Provider: 09/09/19 20:21 Medical Evaluation: Allergies Allergy/AdvReac Type Severity Reaction Status Date / Time No Known Allergies Allergy Verified 04/16/17 21:26 09/09/19 20:21 34 year old female c/o diarrhea since yesterday at 3 pm. reports left upper quadrant pain. patient reports eating out and drinking a spinach smoothie. after drinking smoothie patient reports feeling bad. Last Vital Signs Temp Pulse Resp BP Pulse Ox 99.3 F 76 20 102/53 L 98 09/09/19 20:23 09/09/19 20:23 09/09/19 20:23 09/09/19 20:23 09/09/19 20:23 no pmhx PE; patient alert ox3 A: diarrhea gastroenteritis P: labs IVF zofran 09/09/19 20:25 Discharge Disposition - Diagnosis Gastroenteritis Diarrhea Qualifiers: Diarrhea type: unspecified type Qualified Code(s): R19.7 - Diarrhea, unspecified - Referrals - Patient Instructions - Post Discharge Activity
[2019-09-09 20:34] VITALS: BP 102/53; PULSE 76; TEMP 99.3; BMI 24.3
[2019-09-09 21:10] LABS: BASO % 0.2 % (0-2.0); EOS % 0.1 % (0-4.5); HEMATOCRIT 39.4 % (32.4-45.2); LYMPH % 7.8 % (8-40); MCH 29.3 pg (25.7-33.7); MCHC 33.1 g/dl (32.0-36.0); MEAN CELL VOLUME 88.7 fl (80-96); MEAN PLT VOLUME 9.3 fl (7.5-11.1); MONO % 3.4 % (3.8-10.2); NEUT % 88.5 % (42.8-82.8); PLATELET COUNT 246 K/MM3 (134-434); RBC 4.44 M/mm3 (3.60-5.2); RDW 13.5 % (11.6-15.6); WHITE BLOOD COUNT 11.4 K/mm3 (4.0-10.0)
[2019-09-09 21:15] LABS: EPI CELLS >36 /uL (0-25.1); HYALINE CASTS 2 /uL (0-3.1); URINE APPEARANCE CLEAR; URINE BACTERIA 451 /uL (0-1359); URINE BILIRUBIN NEGATIVE (NEGATIVE); URINE COLOR YELLOW; URINE GLUCOSE (UA) NEGATIVE (NEGATIVE); URINE KETONE NEGATIVE (NEGATIVE); URINE LEUK ESTERASE TRACE (NEGATIVE); URINE NITRITE NEGATIVE (NEGATIVE); URINE PROTEIN TRACE (NEGATIVE); URINE RBC 497 /uL (0-23.9); URINE UROBILINOGEN 0.2 mg/dL (0.2-1.0); URINE WBC 14 /uL (0-25.8)
[2019-09-09 21:22] LABS: HCG,QUALITATIVE URINE Negative
[2019-09-09 21:32] LABS: ALBUMIN 3.8 g/dl (3.4-5.0); BILIRUBIN,TOTAL 0.6 mg/dL (0.2-1); BLOOD UREA NITROGEN 15.1 mg/dL (7-18); CALCIUM 8.3 mg/dL (8.5-10.1); CREATININE 0.8 mg/dL (0.55-1.3); POTASSIUM 3.8 mmol/L (3.5-5.1); TOT PROT 7.3 g/dl (6.4-8.2)
[2019-09-09] MEDS ORDERED: ACETAMINOPHEN 325 MG TABLET (FP) ONE (21:44)
--- NOTE | 2019-09-10 00:02 | PDOC ---
History of Present Illness - General Chief Complaint: Diarrhea Stated Complaint: ABD/PAIN/DIARRHEA/CHILLS/HEADACHE Time Seen by Provider: 09/09/19 20:21 History Source: Patient - History of Present Illness Initial Comments: 09/09/19 23:58 34-year-old female complaining of nausea, diarrhea, left upper quadrant abdominal pain for the last 2 days. Patient reports that she drank a green smoothie with spinach and other fruits. Since drinking a smoothie patient has had several episodes of nonbloody diarrhea. Patient reports low-grade fevers. Denies cough, congestion, respiratory symptoms, chest pain. Past medical history of appendectomy LMP now Past History - Medical History Allergies/Adverse Reactions: Allergies Allergy/AdvReac Type Severity Reaction Status Date / Time No Known Allergies Allergy Verified 04/16/17 21:26 Home Medications: Ambulatory Orders NK [No Known Home Medication] 04/17/17 COPD: No - Psycho-Social/Smoking History Smoking History: Never smoked Have you smoked in the past 12 months: No - Substance Abuse Hx (Audit-C & DAST Scrn) How often the patient has a drink containing alcohol: Never Score: In Men: 4 or > Positive; In Women: 3 or > Positive: 0 Screen Result (Pos requires Nsg. Audit-10AR): Negative Abd/GI Specific PMHX - Complaint Specific PMHX Colitis: No Diverticulitis: No Gall Bladder Disease: No GERD: No Hepatitis: No Irritable Bowel Synd (IBS): No Pancreatitis: No GI Ulcer Disease: No Review of Systems - Review of Systems Able to Perform ROS?: Yes Is the patient limited Tajik proficient: No Constitutional: No: Symptoms Reported, See HPI, Chills, Diaphoresis, Fever, Loss of Appetite, Malaise, Night Sweats, Weakness, Weight Stable, Unintentional Wgt. Loss, Unexplained wgt Loss, Other ABD/GI: Yes: Diarrhea, Nausea, Abdominal cramping. No: Symptoms Reported, See HPI, Abdominal Distended, Abd. Pain w/ defecation, Blood Streaked Bowels, Constipated, Difficulty Swallowing, Poor Appetite, Poor Fluid Intake, Rectal Bleeding, Vomiting, Indigestion, Tarry Stools, Other : No: Symptoms Reported, See HPI, Burning, Dysuria, Discharge, Frequency, Flank Pain, Hematuria, Incontinence, Pain, Urgency, Testicular Mass, Testicular Swelling, Lesions, Testicular Pain, Other *Physical Exam - Vital Signs Last Vital Signs Temp Pulse Resp BP Pulse Ox 99.3 F 76 20 102/53 L 98 09/09/19 20:23 09/09/19 20:23 09/09/19 20:23 09/09/19 20:23 09/09/19 20:23 - Physical Exam General Appearance: Yes: Appropriately Dressed Respiratory/Chest: positive: Lungs Clear, Normal Breath Sounds Gastrointestinal/Abdominal: positive: Normal Bowel Sounds, Soft. negative: Tender Musculoskeletal: positive: Normal Inspection Extremity: positive: Normal Capillary Refill, Normal Inspection, Normal Range of Motion Integumentary: positive: Normal Color, Dry, Warm Neurologic: positive: Fully Oriented, Alert, Normal Mood/Affect ED Treatment Course - LABORATORY CBC & Chemistry Diagram: 09/09/19 20:39 09/09/19 20:39 - ADDITIONAL ORDERS Additional order review: Laboratory Results 09/09/19 08 20:39 20:39 Sodium 136 Potassium 3.8 Chloride 104 Carbon Dioxide 24 Anion Gap 9 BUN 15.1 Creatinine 0.8 Est GFR (CKD-EPI)AfAm 109.93 Est GFR (CKD-EPI)NonAf 94.85 Random Glucose 102 Calcium 8.3 L Total Bilirubin 0.6 AST 48 H ALT 78 H Alkaline Phosphatase 71 Total Protein 7.3 Albumin 3.8 Lipase 99 Urine Color Yellow Urine Appearance Clear Urine pH 6.0 Ur Specific [place] 1.020 Urine Protein Trace Urine Glucose (UA) Negative Urine Ketones Negative Urine Blood 3+ H Urine Nitrite Negative Urine Bilirubin Negative Urine Urobilinogen 0.2 Ur Leukocyte Esterase Trace Urine WBC (Auto) 14 Urine RBC (Auto) 497 Urine Casts (Auto) 2 U Epithel Cells (Auto) >36 Urine Bacteria (Auto) 451 Urine HCG, Qual Negative 09/09/19 20:39 RBC 4.44 MCV 88.7 MCHC 33.1 RDW 13.5 MPV 9.3 Neutrophils % 88.5 H D Lymphocytes % 7.8 L D Monocytes % 3.4 L Eosinophils % 0.1 D Basophils % 0.2 - Medications Given in the ED: ED Medications Discontinued Medications Generic Name Dose Route Start Last Admin Trade Name Freq PRN Reason Stop Dose Admin Acetaminophen 650 mg 09/09/19 20:24 09/09/19 22:46 Tylenol - PO 09/09/19 20:25 650 mg ONCE ONE Administration Diphenhydramine HCl 25 mg 09/09/19 21:43 09/09/19 22:00 Benadryl Injection - IVPB 09/09/19 21:44 25 mg ONCE ONE Administration Sodium Chloride 1,000 mls @ 1,000 mls/hr 09/09/19 20:24 09/09/19 22:46 Normal Saline - IV 09/09/19 21:23 1,000 mls/hr ASDIR STA Administration Famotidine/Sodium Chloride 20 mg in 50 mls @ 100 mls/hr 09/09/19 20:24 09/09/19 22:00 Pepcid 20 Mg Premixed Ivpb - IVPB 09/09/19 20:53 100 mls/hr ONCE ONE Administration ED Progress Note - Progress Note Progress Note: 09/10/19 00:09 A: gastroenteritis P: cbc cmp IVF zofran pepcid Discharge - Discharge Information Problems reviewed: Yes Clinical Impression/Diagnosis: Gastroenteritis Diarrhea Qualifiers: Diarrhea type: unspecified type Qualified Code(s): R19.7 - Diarrhea, unspecified Disposition: HOME - Follow up/Referral - Patient Discharge Instructions Patient Printed Discharge Instructions: Gastroenteritis Diet Additional Instructions: Drink plenty of fluids start a BRAT ( bananas, rice apples toast) follow up with your doctor return to the ER if symptoms worsen - Post Discharge Activity Work/Back to School Note: Back to Work
--- NOTE | 2019-09-10 00:31 | PDOC ---
*Physical Exam - Vital Signs Last Vital Signs Temp Pulse Resp BP Pulse Ox 99.3 F 76 20 102/53 L 98 09/09/19 20:23 09/09/19 20:23 09/09/19 20:23 09/09/19 20:23 09/09/19 20:23 ED Treatment Course - LABORATORY CBC & Chemistry Diagram: 09/09/19 20:39 09/09/19 20:39 - ADDITIONAL ORDERS Additional order review: Laboratory Results 09/09/19 09/09/19 20:39 20:39 Sodium 136 Potassium 3.8 Chloride 104 Carbon Dioxide 24 Anion Gap 9 BUN 15.1 Creatinine 0.8 Est GFR (CKD-EPI)AfAm 109.93 Est GFR (CKD-EPI)NonAf 94.85 Random Glucose 102 Calcium 8.3 L Total Bilirubin 0.6 AST 48 H ALT 78 H Alkaline Phosphatase 71 Total Protein 7.3 Albumin 3.8 Lipase 99 Urine Color Yellow Urine Appearance Clear Urine pH 6.0 Ur Specific [place] 1.020 Urine Protein Trace Urine Glucose (UA) Negative Urine Ketones Negative Urine Blood 3+ H Urine Nitrite Negative Urine Bilirubin Negative Urine Urobilinogen 0.2 Ur Leukocyte Esterase Trace Urine WBC (Auto) 14 Urine RBC (Auto) 497 Urine Casts (Auto) 2 U Epithel Cells (Auto) >36 Urine Bacteria (Auto) 451 Urine HCG, Qual Negative 09/09/19 20:39 RBC 4.44 MCV 88.7 MCHC 33.1 RDW 13.5 MPV 9.3 Neutrophils % 88.5 H D Lymphocytes % 7.8 L D Monocytes % 3.4 L Eosinophils % 0.1 D Basophils % 0.2 - Medications Given in the ED: ED Medications Discontinued Medications Generic Name Dose Route Start Last Admin Trade Name Walterq PRN Reason Stop Dose Admin Acetaminophen 650 mg 09/09/19 20:24 09/09/19 22:46 Tylenol - PO 09/09/19 20:25 650 mg ONCE ONE Administration Diphenhydramine HCl 25 mg 09/09/19 21:43 09/09/19 22:00 Benadryl Injection - IVPB 09/09/19 21:44 25 mg ONCE ONE Administration Sodium Chloride 1,000 mls @ 1,000 mls/hr 09/09/19 20:24 09/09/19 22:46 Normal Saline - IV 09/09/19 21:23 1,000 mls/hr ASDIR STA Administration Famotidine/Sodium Chloride 20 mg in 50 mls @ 100 mls/hr 09/09/19 20:24 09/09/19 22:00 Pepcid 20 Mg Premixed Ivpb - IVPB 09/09/19 20:53 100 mls/hr ONCE ONE Administration Medical Decision Making - Medical Decision Making 09/10/19 00:31 Patient seen by the advanced practice provider under my supervision. Ancillary testing reviewed as necessary. I agree with plan as outlined by the advanced practice provider. Discharge - Discharge Information Problems reviewed: Yes Clinical Impression/Diagnosis: Gastroenteritis Diarrhea Qualifiers: Diarrhea type: unspecified type Qualified Code(s): R19.7 - Diarrhea, unspecified Disposition: HOME - Follow up/Referral - Patient Discharge Instructions Patient Printed Discharge Instructions: Gastroenteritis Diet Additional Instructions: Drink plenty of fluids start a BRAT ( bananas, rice apples toast) follow up with your doctor return to the ER if symptoms worsen - Post Discharge Activity Work/Back to School Note: Back to Work
== END 2019-09-10 00:30 | disposition home or self-care (01) ==
LOC: JER 20:09
PROC: 3E033GC Introduction of Other Therapeutic Substance into Peripheral Vein, Percutaneous Approach (ICD-10-PCS; principal; 2019-09-09)
PROC: 3E0337Z Introduction of Electrolytic and Water Balance Substance into Peripheral Vein, Percutaneous Approach (ICD-10-PCS; 2019-09-09)
DX: R19.7 Diarrhea, unspecified (principal)
CPT/HCPCS: 36415; 80053; 81003; 83690; 84703; 85025; 99284-25

== ENCOUNTER 2022-02-10 11:48 | Emergency (ER) | payer OTHER ==
[2022-02-10 12:25] VITALS: BP 114/72; PULSE 66; RESP 18; TEMP 97.8; BMI 26.5
[2022-02-10] MEDS ORDERED: KETOROLAC TROMETHAMINE 30 MG/1 ML VIAL IM ONE (12:57)
[2022-02-10] MEDS ORDERED: KETOROLAC TROMETHAMINE 30 MG/1 ML VIAL ONE (13:04)
== END 2022-02-10 13:24 | disposition home or self-care (01) ==
LOC: JERFT 11:48
PROC: 3E023GC Introduction of Other Therapeutic Substance into Muscle, Percutaneous Approach (ICD-10-PCS; principal; 2022-02-10)
DX: S46.811A Strain of other muscles, fascia and tendons at shoulder and upper arm level, right arm, initial encounter (principal); M54.2 Cervicalgia; X50.0XXA Overexertion from strenuous movement or load, initial encounter
CPT/HCPCS: 99284-25

== ENCOUNTER 2023-04-24 13:47 | Emergency (ER) | payer OTHER ==
[2023-04-24 13:57] VITALS: BMI 26.2
[2023-04-24] MEDS ORDERED: KETOROLAC TROMETHAMINE 30 MG/1 ML VIAL ONE (15:38)
[2023-04-24] MEDS ORDERED: ONDANSETRON *ODT* 4 MG TABLET ONE (15:38)
[2023-04-24] MEDS ORDERED: ACETAMINOPHEN 325 MG TABLET (FP) ONE (15:38)
[2023-04-24] MEDS: KETOROLAC TROMETHAMINE 30 MG/1 ML VIAL IM ONE (15:49)
[2023-04-24] MEDS: ONDANSETRON *ODT* 4 MG TABLET SL ONE (15:49)
[2023-04-24] MEDS: ACETAMINOPHEN 325 MG TABLET (FP) PO ONE (15:49)
[2023-04-24 15:53] LABS: PH,URINE 5.5 (5.0-8.0); URINE APPEARANCE CLOUDY; URINE BILIRUBIN NEGATIVE (NEGATIVE); URINE COLOR YELLOW; URINE GLUCOSE (UA) NEGATIVE (NEGATIVE); URINE KETONE NEGATIVE (NEGATIVE); URINE LEUK ESTERASE NEGATIVE (NEGATIVE); URINE NITRITE NEGATIVE (NEGATIVE); URINE PROTEIN NEGATIVE (NEGATIVE)
[2023-04-24 15:55] LABS: HCG,QUALITATIVE URINE Negative
[2023-04-24 17:16] VITALS: TEMP 97.6
[2023-04-24] MEDS ORDERED: LIDOCAINE 4% PATCH TP ONE (18:04)
[2023-04-24] MEDS: LIDOCAINE 4% PATCH TP ONE (18:12)
[2023-04-24 18:13] VITALS: BP 105/59; PULSE 69; RESP 16
== END 2023-04-24 18:10 | disposition home or self-care (01) ==
LOC: JER 13:47
PROC: 3E0233Z Introduction of Anti-inflammatory into Muscle, Percutaneous Approach (ICD-10-PCS; principal; 2023-04-24)
DX: S46.811A Strain of other muscles, fascia and tendons at shoulder and upper arm level, right arm, initial encounter (principal); R10.30 Lower abdominal pain, unspecified; R11.2 Nausea with vomiting, unspecified; R05.9 Cough, unspecified; R35.0 Frequency of micturition; K52.9 Noninfective gastroenteritis and colitis, unspecified; X50.1XXA Overexertion from prolonged static or awkward postures, initial encounter; Y93.B9 Activity, other involving muscle strengthening exercises; Z20.822 Contact with and (suspected) exposure to COVID-19
CPT/HCPCS: 0241U-QW; 73030-TC-LT-FY; 81003; 84703; 87086; 93005; 93010; 99285-25; Q0162